=== PATIENT | female | born 1955 | race Caucasian/White ===

== ENCOUNTER → 2016-08-30 | Outpatient (CLI) | payer OTHER ==
[~2016-08-30] MED LIST: ACETAMINOPHEN500 M2 PO; ACTONEL PO; ASPIRIN ENTERI325 M1 PO; ASPIRIN81 M1 PO; AUGMENTIN PO; CALTRATE 600+D PO; CELEXA20 MG PO; CERTAGEN PO; CRESTOR10 MG PO; EFFIENT10 MG PO; FORTAMET1000 MG/B1 PO; JANUVIA100 MG PO; LOTREL 10-20 MG1 CAP PO; LOTREL 10/20 MG1 CAP PO; LOTREL 5/10 MG1 CAP PO; MAXZIDE 37.5 M1 EACH PO; MOBIC PO; MOBIC15 MG PO; NITROSTAT0.4 MG SL; PERCOCET5/325 PO; PHENERGAN PO; PHENERGAN PR; PHENERGAN25 MG PO; TRI; TRIAMTERENE-HCT1 TA6 PO; ZOCOR PO; ZYRTEC10 M2 PO
--- NOTE | ~2016-08-30 | MY29 ---
[facility] RADIOLOGY TEXT RESULTS PATIENT: RICHELLE CAMACHO LOCATION: [facility] : 53 UNIT #: [id number] AGE: [address]: Sohail York MD SEX: F ORDER DR: [id number] [facility] [address] [place], [place] [address] [id number] O MR#: [id number] Acc #: [id number] NAME: RICHELLE CAMACHO : 1955 SEX: F STUDY DATE/TIME: 08/30/2016 15:11 UNIT: [facility] ROOM: STUDY DESCRIPTION: MY FANNIE SCREENING W/ CAD BILAT Attending Physician: Sohail York M.D. Ordering Physician: Sohail York M.D. Primary Care Physician: Sohail York M.D. MEDICAL IMAGING REPORT This report is preliminary unless electronic signature is present EXAM Digital screening mammogram, 08/30/2016 HISTORY 61-year-old woman positive family history, aunts ages 32 and 40. Annual screen. COMPARISON Mammograms date to 04/21/2006, with most recent 08/29/2014. FINDINGS Digital imaging of each breast was completed utilizing a two-view examination of each breast in craniocaudal and mediolateral-oblique projections. Review and interpretation of digital mammograms include a second review in conjunction with FDA-approved CAD device. There is a normal parenchymal presentation bilaterally consistent with the patient's age. There are no breast masses imaged and no parenchymal asymmetry is visualized. There are no suspicious microcalcifications and I see no focal architectural disturbance. IMPRESSION Negative screening digital mammogram. One-year followup recommended. Patients over the age of 40 are entered into a reminder system with target due date for the next mammogram. A result letter will also be sent to the patient. BIRADS: 1 Negative Dictated by... Evan Fink M.D. [facility] RADIOLOGY TEXT RESULTS PATIENT: RICHELLE CAMACHO LOCATION: [facility] : 53 UNIT #: [id number] AGE: [address]: Sohail York MD SEX: F ORDER DR: THIS IS AN ELECTRONICALLY VERIFIED REPORT Evan Fink M.D. at 08/31/2016 8:10 AM MARLON/michelle TD: 08/30/2016 23:36 JOB #: [id number] MEDICAL IMAGING REPORT Page 1 of 1 COPY
== END | disposition home or self-care (01) ==
LOC: CWCC 14:39
DX: Z12.31 Encounter for screening mammogram for malignant neoplasm of breast (principal); Z80.3 Family history of malignant neoplasm of breast
CPT/HCPCS: G0202